=== PATIENT | female | born 1980 | race Two or more races ===

== ENCOUNTER 2023-01-18 04:30 | Inpatient (IN) | payer BC ==
[~2023-01-18] VITALS: Ht 154.9 cm; Wt 69.5 kg
[2023-01-18 05:38] LABS: BASOPHILS # (AUTO) 0.1 X10'3 (0-0.2); BASOPHILS % (AUTO) 0.5 % (0-1); EOSINOPHILS % (AUTO) 0 % (0-6); HEMATOCRIT 51.5 % (35.0-45.0); HEMOGLOBIN 17.6 g/dl (12.0-16.0); LYMPHOCYTES # (AUTO) 2.1 X10'3 (1.1-4.8); LYMPHOCYTES % (AUTO) 10.4 % (21-51); MEAN CORPUSCULAR HEMOGLOBIN 30.6 PG (27.0-31.0); MEAN CORPUSCULAR HGB CONC 34.1 g/dL (33.0-36.5); MEAN CORPUSCULAR VOLUME 89.7 FL (78-98); MEAN PLATELET VOLUME 8.1 FL (7.4-10.4); MONOCYTES # (AUTO) 1.4 X10'3 (0-0.9); MONOCYTES % (AUTO) 7.1 % (2-12); NEUTROPHILS # (AUTO) 16.5 X10'3 (1.8-7.7); PLATELET COUNT 361 X10'3 (140-440); RED BLOOD COUNT 5.74 X10'6 (4.20-5.60); RED CELL DISTRIBUTION WIDTH 12.4 % (11.5-14.5); WHITE BLOOD COUNT 20.2 X10'3 (4.5-11.0)
[2023-01-18 05:53] LABS: ALANINE AMINOTRANSFERASE 19 U/L (12-78); ALBUMIN 5.3 G/DL (3.4-5.0); ALBUMIN/GLOBULIN RATIO 1.1 (1.1-1.5); ALKALINE PHOSPHATASE 77 IU/L (46-116); ANION GAP 24 (8-16); ASPARTATE AMINO TRANSFERASE 41 U/L (10-37); BILIRUBIN,TOTAL 1.6 MG/DL (0.1-1.0); BLOOD UREA NITROGEN 64 MG/DL (7-18); BUN/CREATININE RATIO 17.2 (6.6-38.0); CALCIUM 10.3 MG/DL (8.5-10.1); CHLORIDE 80 MMOL/L (99-107); CREATININE 3.72 MG/DL (0.40-0.90); GLUCOSE 164 MG/DL (70-104); LIPASE 140 U/L (73-393); SODIUM 130 MMOL/L (135-145); TOTAL CARBON DIOXIDE 25.6 MMOL/L (24-32); TOTAL PROTEIN 10.2 G/DL (6.4-8.2); eGFR 13 ML/MIN
[2023-01-18 06:15] LABS: POTASSIUM 2.9 MMOL/L (3.5-5.1)
[2023-01-18] MEDS ORDERED: normal saline 1000ML IV soln IVB ONE (07:15)
[2023-01-18] MEDS ORDERED: potassium Cl 20 mEq SR tablet PO STA (07:15)
[2023-01-18] MEDS ORDERED: morphine 4 MG/ML inj SYRINge IV ONE (07:15)
[2023-01-18] MEDS ORDERED: ondansetron/PF 4mg/2ml inj IV ONE (07:20)
[2023-01-18 08:24] LABS: BASOPHILS # (AUTO) 0.1 X10'3 (0-0.2); BASOPHILS % (AUTO) 0.4 % (0-1); EOSINOPHILS % (AUTO) 0 % (0-6); HEMATOCRIT 49.8 % (35.0-45.0); HEMOGLOBIN 17.1 g/dl (12.0-16.0); LYMPHOCYTES # (AUTO) 1.1 X10'3 (1.1-4.8); MEAN CORPUSCULAR HEMOGLOBIN 31.2 PG (27.0-31.0); MEAN CORPUSCULAR HGB CONC 34.4 g/dL (33.0-36.5); MEAN CORPUSCULAR VOLUME 90.8 FL (78-98); MONOCYTES # (AUTO) 1.4 X10'3 (0-0.9); MONOCYTES % (AUTO) 7.6 % (2-12); NEUTROPHILS # (AUTO) 16.3 X10'3 (1.8-7.7); PLATELET COUNT 305 X10'3 (140-440); RED BLOOD COUNT 5.49 X10'6 (4.20-5.60); RED CELL DISTRIBUTION WIDTH 12.7 % (11.5-14.5); WHITE BLOOD COUNT 18.9 X10'3 (4.5-11.0)
[2023-01-18 08:52] LABS: ETHANOL < 0.010 GM/DL (0.0-0.010); MAGNESIUM 2.5 MG/DL (1.5-2.4)
[2023-01-18 10:02] LABS: CLARITY,URINE CLOUDY (Clear); COLOR,URINE YELLOW (Yellow); GLUCOSE, URINE NEGATIVE (Neg); KETONES,URINE 40 mg/dl (Neg); LEUKOCYTE ESTERASE ,URINE NEGATIVE (Neg); NITRITES, URINE NEGATIVE (Neg); OCCULT BLOOD,URINE SMALL (Neg); PROTEIN,URINE 100 mg/dl (Neg); URINE HCG NEGATIVE (NEG); UROBILINOGEN,URINE 0.2 E.U/dL (0.2-1.0)
[2023-01-18 10:04] LABS: UA COLLECTION TYPE CLN CATCH MIDSTREAM
[2023-01-18 10:18] LABS: URINE AMPHETAMINE SCREEN NEGATIVE (Neg); URINE BARBITUATE SCREEN NEGATIVE (Neg); URINE BENZODIAZEPINES SCREEN NEGATIVE (Neg); URINE CANNABINOID SCREEN POSITIVE (Neg); URINE COCAINE SCREEN NEGATIVE (Neg); URINE METHADONE SCREEN NEGATIVE (Neg); URINE OPIATE SCREEN POSITIVE (Neg); URINE PHENCYCLIDINE SCREEN NEGATIVE (Neg)
[2023-01-18 10:29] LABS: BACTERIA,URINE 2+ /HPF (Neg); SQUAMOUS EPITHELIAL CELL,UR MANY /LPF (FEW); TRANSITIONAL EPI CELLS,URINE FEW /HPF
[2023-01-18 11:09] LABS: ALBUMIN 4.8 G/DL (3.4-5.0); ANION GAP 24 (8-16); BLOOD UREA NITROGEN 66 MG/DL (7-18); BUN/CREATININE RATIO 19.1 (6.6-38.0); CALCIUM 9.6 MG/DL (8.5-10.1); CHLORIDE 87 MMOL/L (99-107); CREATININE 3.46 MG/DL (0.40-0.90); GLUCOSE 114 MG/DL (70-104); SODIUM 133 MMOL/L (135-145); TOTAL CARBON DIOXIDE 22.4 MMOL/L (24-32); eGFR 15 ML/MIN
[2023-01-18 11:16] LABS: POTASSIUM 2.8 MMOL/L (3.5-5.1)
[2023-01-18] MEDS ORDERED: normal saline 1000ml 1,000 ML IV ONE (12:40)
[2023-01-18 13:26] LABS: ANION GAP 10 (8-16); BLOOD UREA NITROGEN 58 MG/DL (7-18); BUN/CREATININE RATIO 22.3 (6.6-38.0); CHLORIDE 91 MMOL/L (99-107); GLUCOSE 116 MG/DL (70-104); POTASSIUM 4.1 MMOL/L (3.5-5.1); SODIUM 133 MMOL/L (135-145); TOTAL CARBON DIOXIDE 32.1 MMOL/L (24-32); eGFR 20 ML/MIN
[2023-01-18] MEDS ORDERED: CefTRIAXone/D5W-Rocephin 1gm 50 ML IV ONE (14:00)
[2023-01-18] MEDS ORDERED: ESCI10TA PO (15:37)
[2023-01-18] MEDS ORDERED: magnesium Cl slow-release 64mg tablet PO PRN (15:50)
[2023-01-18] MEDS ORDERED: acetaminophen 325mg tablet PO PRN (15:50)
[2023-01-18] MEDS ORDERED: mag hydrox/Alum hydrox/simeth 30ml oral suspension PO PRN (15:50)
[2023-01-18] MEDS ORDERED: potassium Cl 40MEQ/1/2NS 520ml 520 ML IV PRN (15:50)
[2023-01-18] MEDS ORDERED: magnesium hydroxide 30ml (MOM) UD suspension PO PRN (15:50)
[2023-01-18] MEDS ORDERED: ondansetron/PF 4mg/2ml inj IV PRN (15:50)
[2023-01-18] MEDS ORDERED: magnesium 4gm in 100ml NS 100 ML IV PRN (15:50)
[2023-01-18] MEDS ORDERED: potassium Cl 20 mEq SR tablet PO PRN (15:50)
[2023-01-18] MEDS ORDERED: dextrose 50%-water 50ml dispensing syringe IV PRN (16:50)
[2023-01-18] MEDS ORDERED: haloperidol 5mg tablet PO PRN (16:50)
[2023-01-18] MEDS ORDERED: LORazepam 2 mg/ml vial IV PRN (16:50)
[2023-01-18] MEDS ORDERED: haloperidol lactate 5mg/ml inj IM PRN (16:50)
--- NOTE | 2023-01-18 19:06 | NUR ---
Patient in room ED 7. I have received report from MARIBEL Boo and had the opportunity to ask questions and assume patient care.
[2023-01-18 19:16] VITALS: BP 111/66
[2023-01-18] MEDS: docusate sod 100mg capsule PO SCH (20:00)
[2023-01-18] MEDS: K and/or MAG REPLACEMENT MC SCH (20:00)
[2023-01-18] MEDS: thiamine 100mg/ml 2ml inj. IV SCH (20:37)
[2023-01-18] MEDS: normal saline 1000ml 1,000 ML IV SCH (20:38)
[2023-01-18 22:00] VITALS: BP 132/73
[2023-01-19 02:00] VITALS: BP 110/77
[2023-01-19] MEDS: normal saline 1000ml 1,000 ML IV SCH ×2 (05:25→11:50)
[2023-01-19 06:37] LABS: BASOPHILS % (AUTO) 0.3 % (0-1); EOSINOPHILS % (AUTO) 0.4 % (0-6); HEMATOCRIT 40.7 % (35.0-45.0); HEMOGLOBIN 13.9 g/dl (12.0-16.0); LYMPHOCYTES # (AUTO) 1.8 X10'3 (1.1-4.8); LYMPHOCYTES % (AUTO) 16.7 % (21-51); MEAN CORPUSCULAR HEMOGLOBIN 31.6 PG (27.0-31.0); MEAN PLATELET VOLUME 7.7 FL (7.4-10.4); MONOCYTES # (AUTO) 1.4 X10'3 (0-0.9); MONOCYTES % (AUTO) 12.8 % (2-12); NEUTROPHILS # (AUTO) 7.5 X10'3 (1.8-7.7); NEUTROPHILS % (AUTO) 69.8 % (42-75); PLATELET COUNT 227 X10'3 (140-440); RED BLOOD COUNT 4.38 X10'6 (4.20-5.60); RED CELL DISTRIBUTION WIDTH 12.6 % (11.5-14.5); WHITE BLOOD COUNT 10.8 X10'3 (4.5-11.0)
--- NOTE | 2023-01-19 06:39 | NUR ---
Problems reprioritized. Patient report given, questions answered & plan of care reviewed with MARIBEL Gaspar.
[2023-01-19 06:53] LABS: ALBUMIN 3.2 G/DL (3.4-5.0); ANION GAP 6 (8-16); BLOOD UREA NITROGEN 34 MG/DL (7-18); BUN/CREATININE RATIO 28.3 (6.6-38.0); CALCIUM 8.6 MG/DL (8.5-10.1); CHLORIDE 100 MMOL/L (99-107); GLUCOSE 97 MG/DL (70-104); MAGNESIUM 2.9 MG/DL (1.5-2.4); SODIUM 137 MMOL/L (135-145); TOTAL CARBON DIOXIDE 30.6 MMOL/L (24-32); eGFR 50 ML/MIN
--- NOTE | 2023-01-19 07:15 | NUR ---
3017A-Swapna Good--Fidel lab-K 3.0-will replace per pro-Florinda x [phone]
[2023-01-19] MEDS: docusate sod 100mg capsule PO SCH (07:48)
[2023-01-19] MEDS: potassium Cl 20 mEq SR tablet PO PRN ×2 (07:51→12:57)
[2023-01-19] MEDS: K and/or MAG REPLACEMENT MC SCH (07:58)
[2023-01-19] MEDS ORDERED: enoxaparin 40mg/0.4ml syringe SUBCUT SCH (08:00)
[2023-01-19] MEDS ORDERED: folic acid 1mg/0.2ml inj IV SCH (08:00)
[2023-01-19] MEDS: thiamine 100mg/ml 2ml inj. IV SCH ×2 (08:29→13:00)
[2023-01-19 12:34] LABS: CLARITY,URINE SLIGHTLY CLOUDY (Clear); COLOR,URINE YELLOW (Yellow); GLUCOSE, URINE NEGATIVE (Neg); KETONES,URINE TRACE mg/dl (Neg); LEUKOCYTE ESTERASE ,URINE TRACE (Neg); NITRITES, URINE NEGATIVE (Neg); OCCULT BLOOD,URINE NEGATIVE (Neg); PH,URINE 6.5 (4.8-8.0); PROTEIN,URINE NEGATIVE (Neg); UROBILINOGEN,URINE 0.2 E.U/dL (0.2-1.0)
[2023-01-19 12:36] LABS: TOTAL PROTEIN,URINE RANDOM 20.1 MG/DL
[2023-01-19 12:49] LABS: UA COLLECTION TYPE OTHER
[2023-01-19 12:52] LABS: BACTERIA,URINE FEW /HPF (Neg); RBC,URINE 0-2 /HPF (0-2)
[2023-01-19 12:53] LABS: MUCUS STRANDS NONE SEEN /LPF (Neg); SQUAMOUS EPITHELIAL CELL,UR MODERATE /LPF (FEW); TRANSITIONAL EPI CELLS,URINE MODERATE /HPF
[2023-01-19 13:46] LABS: UA EOSINOPHILS NO EOS /HPF
--- NOTE | 2023-01-19 13:51 | NUR ---
Malnutrition consult: Pt reports 2-13 lb wt loss with decreased appetite per malnutrition risk screen with RN. No scaled wt hx in EMR. Pt seen at bedside, reports 12 lb wt loss in 3 days d/t emesis with UBW 165 lbs, current scaled wt is 153 lbs. Per H&P pt reports N/V x 2 days. Unsure if pt truly lost 12 lbs in 2-3 days though likely did experience wt changes r/t emesis. Pt reports eating well prior to recent N/V episode and endorses a good appetite at this time with no N/V. Pending documentation of breakfast this morning though it appears pt ate well per report. No visible fat or muscle wasting appreciated. Per EMR pt with no edema. Pt currently lacks a minimum of two criteria for malnutrition though will continue to monitor malnutrition criteria. Pt denies food allergies or difficulty chewing/swallowing. Will continue to follow. Addendum: 01/19/23 at [address] Amended: Links added.
[2023-01-19] MEDS ORDERED: OMEP40CA21 PO (15:14)
[2023-01-19] MEDS ORDERED: ONDA4TAB12 PO (15:14)
--- NOTE | 2023-01-19 16:50 | NUR ---
3018I-Swapna Good--Is Pt still ok to D/C? Florinda buchanan [phone]
--- NOTE | 2023-01-19 17:40 | NUR ---
I agree with NILA Neely assessment.
--- NOTE | 2023-01-19 18:38 | NUR ---
patient discharged, called RX x 2 in to [facility] on [facility] due to RX finalized prior to pharmacy info in computer.
[2023-01-20] MEDS ORDERED: LORazepam 1 MG tablet PO PRN (16:50)
[2023-01-20] MEDS ORDERED: LORazepam 2 mg/ml vial IV PRN (16:50)
[2023-01-22] MEDS ORDERED: LORazepam 2 mg/ml vial IV PRN (16:50)
[2023-01-22] MEDS ORDERED: LORazepam 1 MG tablet PO PRN (16:50)
[2023-01-23] MEDS ORDERED: thiamine 100mg tablet PO SCH (08:00)
[2023-01-23] MEDS ORDERED: folic acid 1mg tablet PO SCH (08:00)
== END 2023-01-19 18:38 | disposition home or self-care (01) | DRG 391 ==
LOC: ER 04:32 → ED HOLD 15:50 → PCU 3S 18:50
PROVIDERS: ADMIT Family Medicine; ATTEND Family Medicine
DX: K52.9 Noninfective gastroenteritis and colitis, unspecified (principal); N17.0 Acute kidney failure with tubular necrosis; N39.0 Urinary tract infection, site not specified; K29.70 Gastritis, unspecified, without bleeding; F12.90 Cannabis use, unspecified, uncomplicated; E83.41 Hypermagnesemia; E87.6 Hypokalemia; F32.A Depression, unspecified; F41.9 Anxiety disorder, unspecified; Z79.899 Other long term (current) drug therapy
CPT/HCPCS: 36415; 71045; 76700; 76770; 80048; 80053; 80305; 80320; 81001; 81025; 82570; 83605; 83690; 83735; 84132; 84156; 84300; 84484; 85025; 87040; 87077; 87081; 87186; 87207; 99285; G0378; J0696; J1650; J2060; J2270; J2405; J3411; J3490; J7030